=== PATIENT | male | born 1980 | race Caucasian/White ===

== ENCOUNTER 2018-09-30 22:04 | Emergency (ER) | payer OTHER ==
[~2018-09-30] VITALS: Ht 185.4 cm; Wt 114.3 kg
[2018-09-30 22:08] VITALS: BP 146/93
[2018-10-01] MEDS ORDERED: GENTAMICIN OPTH sol 0.3% 5ml LEFTEYE ONE (02:30)
[2018-10-01] MEDS ORDERED: FLUORESCEIN SOD 1 MG TEST STRIP RIGHTEYE ONE (02:30)
[2018-10-01] MEDS ORDERED: TETRACAINE HCL 0.5% OPTH(EYE) SOLN 4ML EACHEYE ONE (02:30)
[2018-10-01] MEDS ORDERED: TETANUS-DIPTH-ACEL PERTUSSIS 0.5ML SYRG IM ONE (03:30)
== END 2018-10-01 03:55 | disposition home or self-care (01) ==
LOC: ER 22:04
DX: T15.02XA Foreign body in cornea, left eye, initial encounter (principal); X58.XXXA Exposure to other specified factors, initial encounter; Y93.89 Activity, other specified; Y92.89 Other specified places as the place of occurrence of the external cause; Y99.8 Other external cause status
CPT/HCPCS: 65222; 90471; 90715